=== PATIENT | female | born 1980 | race Caucasian/White ===

== ENCOUNTER 2018-10-18 17:10 | Emergency (ER) | payer OTHER ==
[~2018-10-18] VITALS: Ht 157.5 cm; Wt 61.4 kg
[2018-10-18] MEDS ORDERED: ACYC200C PO (17:32)
[2018-10-18 17:52] VITALS: BP 118/79
== END 2018-10-18 20:17 | disposition left against medical advice (07) ==
LOC: EMS 17:11
DX: R13.10 Dysphagia, unspecified (principal); J02.9 Acute pharyngitis, unspecified
CPT/HCPCS: 87430

== ENCOUNTER 2019-12-26 23:22 | Emergency (ER) | payer OTHER ==
[~2019-12-26] VITALS: Ht 157.5 cm; Wt 81.4 kg
[~2019-12-26 23:22] MED LIST: ACYC200C PO
[2019-12-27 02:20] LABS: BASOPHILS % (AUTO) 0.6 % (0.0-2.0); EOSINOPHILS % (AUTO) 1.2 % (1.0-6.0); HEMATOCRIT 39.2 % (36-46); HEMOGLOBIN 13.4 g/dL (12.0-16.0); LYMPHOCYTES # (AUTO) 2.7 K/uL (1.0-4.8); LYMPHOCYTES % (AUTO) 29.6 % (22.0-44.0); MEAN CORPUSCULAR HGB CONC 34.2 G/dL (31.0-37.0); MEAN CORPUSCULAR VOLUME 88 fL (80-100); MONOCYTES # (AUTO) 0.5 K/uL (0.1-1.0); MONOCYTES % (AUTO) 5.3 % (2.0-9.0); NEUTROPHILS # (AUTO) 5.7 K/uL (1.8-7.7); NEUTROPHILS % (AUTO) 63.3 % (40.0-70.0); PLATELET COUNT (AUTO) 342 K/uL (150-450); RED BLOOD CELL COUNT(AUTO) 4.47 MIL/uL (4.00-5.20); RED CELL DISTRIBUTION WIDTH 13.3 % (11.5-14.5)
[2019-12-27 02:29] LABS: ANION GAP 14 mmol/L (8-16); CALCIUM, TOTAL 9.6 mg/dL (8.8-10.5); CARBON DIOXIDE 24 mmol/L (22-29); CHLORIDE 103 mmol/L (98-107); CREATININE 0.63 mg/dL (0.60-1.30); GLOMERULAR FILTR. RATE CALC > 60 mL/min (>60); GLUCOSE,RANDOM 102 mg/dL (70-110); POTASSIUM 4.2 mmol/L (3.5-5.1); SODIUM SERUM 141 mmol/L (136-145); UREA NITROGEN, BLOOD 10 mg/dL (7-18)
[2019-12-27 02:46] LABS: CREATINE KINASE, TOTAL ONLY 45 U/L (26-192)
[2019-12-27] MEDS ORDERED: SODIUM CHLORIDE 0.9% 100 ML ONE (03:43)
[2019-12-27] MEDS ORDERED: IOVERSOL 350 MG/ML 100 ML VIAL ONE (03:43)
[2019-12-27 05:07] LABS: HCG,QUANTITATIVE < 1 mIU/mL (0-6)
[2019-12-27 06:37] VITALS: BP 99/71
== END 2019-12-27 08:19 | disposition home or self-care (01) ==
LOC: EMS 23:22
DX: R07.9 Chest pain, unspecified (principal); R06.02 Shortness of breath; R05 Cough
CPT/HCPCS: 36415; 71045; 71275; 80048; 82550; 83735; 84484; 84702; 85025; 85379; 93005; 99285; J7050; Q9967